=== PATIENT | female | born 1980 | race Caucasian/White ===

== ENCOUNTER 2017-12-13 11:56 | Day surgery (SDC) | payer BC ==
[2017-12-13 12:47] VITALS: BMI 29.6
[2017-12-13 12:48] VITALS: RESP 16; TEMP 97.6
[2017-12-13] MEDS ORDERED: LACTATED RINGERS 1,000 ML IV ONE (12:52)
[2017-12-13] MEDS ORDERED: LIDOCAINE 1% 20 ML VIAL (10MG/ML) FOR IV START INTRADERMA ONE (12:52)
[2017-12-13] MEDS ORDERED: PROPOFOL 10 MG/ML 20 ML VIAL IV ONE (13:32)
--- NOTE | 2017-12-13 13:45 | P.PCN ---
Date of Procedure: 12/13/17 Procedure(s) Performed: BRIEF HISTORY: Patient is a 36-year-old pleasant female, scheduled for an elective colonoscopy as a part of intermittent lower abdominal pain and change in bowel habits. PROCEDURE PERFORMED: Colonoscopy. PREOPERATIVE DIAGNOSIS: Lower abdominal pain and change in bowel habits. IV sedation per Anesthesia. PROCEDURE: After informed consent was obtained, the patient, was brought into the endoscopy unit. IV sedation was administered by Anesthesia under continuous monitoring. Digital rectal examination was normal. Initially the Olympus CF- 160 flexible video colonoscope was then inserted in the rectum, gradually advanced into the cecum without any difficulty. Careful examination was performed as the scope was gradually being withdrawn. Ileocecal valve and the appendiceal orifice were visualized and appeared normal. Prep was excellent. Mucosa of the cecum, ascending colon, transverse colon, descending colon, sigmoid colon, and rectum appeared normal. Retroflexion was performed in the rectum and mild internal hemorrhoids were seen. The patient tolerated the procedure well. IMPRESSION: Normal-appearing colon from rectum to cecum with no evidence of colorectal neoplasia or colitis. Small internal hemorrhoids. RECOMMENDATIONS: Findings of this examination were discussed with the patient as well as her family. She was advised to be a high-fiber diet and take fiber supplements a regular basis..
[2017-12-13 14:07] VITALS: BP 118/72; PULSE 74
== END 2017-12-13 14:29 | disposition home or self-care (01) ==
LOC: ORWHC2ENDO 11:56
PROVIDERS: ATTEND Internal Medicine Gastroenterology
DX: K64.8 Other hemorrhoids (principal); R10.30 Lower abdominal pain, unspecified; R19.4 Change in bowel habit
CPT/HCPCS: 81025; 45378; J2704